=== PATIENT | female | born 1945 | race Caucasian/White ===

== ENCOUNTER → 2017-06-20 | Outpatient (CLI) | payer OTHER, BC | LOC: BMCIMAGING 13:58 | PROVIDERS: ATTEND Internal Medicine | DX: Z13.820 Encounter for screening for osteoporosis (principal); M81.0 Age-related osteoporosis without current pathological fracture | CPT/HCPCS: G0202 ==

== ENCOUNTER → 2017-09-12 | Outpatient (CLI) | payer OTHER, BC | LOC: BMCIMAGING 08:28 → EDSTATUS 08:29 | PROVIDERS: ATTEND Physician Assistant | DX: M17.12 Unilateral primary osteoarthritis, left knee (principal) ==

== ENCOUNTER → 2017-09-21 | Outpatient (CLI) | payer OTHER, BC | LOC: FIMAGING 07:51 | PROVIDERS: ATTEND Physician Assistant | DX: S83.232A Complex tear of medial meniscus, current injury, left knee, initial encounter (principal); R60.0 Localized edema ==

== ENCOUNTER → 2018-01-23 | Outpatient (CLI) | payer OTHER, BC | LOC: FIMAGING 14:52 | PROVIDERS: ATTEND Internal Medicine Hematology & Oncology | DX: M79.662 Pain in left lower leg (principal) ==

== ENCOUNTER → 2018-07-16 | Outpatient (CLI) | payer OTHER, BC | LOC: BMCIMAGING 12:30 | PROVIDERS: ATTEND Internal Medicine | DX: Z12.31 Encounter for screening mammogram for malignant neoplasm of breast (principal) ==